=== PATIENT | male | born 1975 | race Caucasian/White ===

== ENCOUNTER 2018-03-21 11:09 | Emergency (ER) | payer OTHER ==
[~2018-03-21] VITALS: Ht 185.4 cm; Wt 83.9 kg
[~2018-03-21 11:09] MED LIST: ACETAMINOPHEN-1 EAC3 PO; CIPROFLOXACIN500 M3 OR; CLONAZEPAM 1 MG1 M1 PO; DOXYCYCLINE 10100 M1 PO; IBUPROFEN 800800 M1 PO; IBUPROFEN 800800 MG PO; KEFLEX500 MG PO; MOBIC7.5 M1 PO; NAPROSYN500 MG; NOHOMEMEDICATIONS; NORCO 5-325 TA1 EACH PO; PERCOCET 5-3251 EACH PO; PYRIDIUM200 MG PO; ROBAXIN 750 MG750 MG PO; TYLENOL EX-STR500 M2 PO
[2018-03-21 11:57] LABS: ABSOLUTE BASOPHILS 0.2 thou/uL (0.0-0.2); ABSOLUTE EOSINOPHILS 0.5 thou/uL (0.0-0.7); ABSOLUTE MONOCYTES 0.6 thou/uL (0.0-1.2); ABSOLUTE NEUTROPHILS 5.6 thou/uL (1.6-8.1); BASOPHILS 2.1 %; EOSINOPHILS 5.9 %; HEMATOCRIT 44.6 % (42.0-52.0); HEMOGLOBIN 14.8 gm/dL (14.0-18.0); LYMPHOCYTES 22.2 %; MCHC 33.1 g/dL (28.0-37.0); MCV 87.4 fL (80.0-100.0); MONOCYTES 7.1 %; MPV 8.5 fl. (7.2-11.1); NUCLEATED RBCS 0 /100WBC; PLATELET COUNT* 302 thou/uL (150-400); POLYS 62.7 %; RDW-CV 14.8 % (10.5-14.5)
[2018-03-21 12:04] LABS: CALCIUM 8.6 mg/dL (8.5-10.1); CREATININE 0.9 mg/dL (0.6-1.3)
[2018-03-21 12:06] LABS: APTT 28.5 Seconds (25.0-31.3); PROTIME 9.5 Seconds (9.20-11.50)
[2018-03-21 12:09] LABS: ALBUMIN 3.2 g/dL (3.4-5.0); TOTAL BILIRUBIN 0.3 mg/dL (<0.1-1.0); TOTAL PROTEIN 7.1 g/dL (6.4-8.2)
[2018-03-21 13:21] LABS: ESR (SEDRATE) 3 mm/hr (0-15)
[2018-03-21] MEDS ORDERED: NORCO 5-325 TA1 EAC1 PO (13:25)
[2018-03-21] MEDS ORDERED: BACTRIM DS TAB1 EACH PO (13:25)
[2018-03-21 13:44] VITALS: BP 114/70
== END 2018-03-21 13:44 | disposition home or self-care (01) ==
LOC: M.ERS 11:09
PROVIDERS: Nurse Practitioner Family
DX: M70.32 Other bursitis of elbow, left elbow (principal); L02.512 Cutaneous abscess of left hand; F17.210 Nicotine dependence, cigarettes, uncomplicated; Z88.6 Allergy status to analgesic agent; Z88.8 Allergy status to other drugs, medicaments and biological substances; Y93.89 Activity, other specified; Z79.899 Other long term (current) drug therapy